=== PATIENT | female | born 1945 | race Caucasian/White ===

== ENCOUNTER 2016-06-05 14:08 | Emergency (ER) | payer MEDICARE ==
[2016-06-05 14:54] VITALS: BP 122/64
--- NOTE | 2016-06-05 15:15 | UC ---
Eye Complaint HPI - HPI Summary HPI Summary: complaint of left eye itchiness , redness and discharge that started today denies vision changes denies eye pain, headache doesn't wear contacts recent contact with several students with pink eye - History of Current Complaint Chief Complaint: UCEye Stated Complaint: LEFT EYE COMPLAINT Time Seen by Provider: 06/05/16 15:09 Hx Obtained From: Patient - Allergies/Home Medications Allergies/Adverse Reactions: Allergies Allergy/AdvReac Type Severity Reaction Status Date / Time Hydrocodone AdvReac Headache, Verified 06/05/16 14:46 nausea Meperidine [From Demerol HCl] AdvReac numbness/ti Verified 06/05/16 14:46 ngling Morphine AdvReac Nausea, Verified 06/05/16 14:46 headache Oxycodone AdvReac Headache, Verified 06/05/16 14:46 nausea PMH/Surg Hx/FS Hx/Imm Hx Previously Healthy: Yes Endocrine History Of: Reports: Thyroid Disease Denies: Diabetes Cardiovascular History Of: Reports: Hypertension Denies: Pacemaker/ICD Respiratory History Of: Denies: Asthma GI/ History Of: Denies: Renal Disease - Surgical History Surgical History: Yes Surgery Procedure, Year, and Place: HYSTERECTOMY, TONSILS, LASIK. Right shoulder surgery 2012. gallbladder december 2012 - Family History Known Family History: Negative: Cardiac Disease, Hypertension, Diabetes - Social History Occupation: Employed Part-time Lives: With Family Alcohol Use: Rare Substance Use Type: None Smoking Status (MU): Never Smoked Tobacco Type: Cigarettes Amount Used/How Often: smoked 1965 - 1969's, 2 cig per day - Immunization History Most Recent Influenza Vaccination: 2016 Most Recent Tetanus Shot: Unk Most Recent Pneumonia Vaccination: UTD Review of Systems Constitutional: Negative Skin: Negative Eyes: Drainage, Eye Redness ENT: Negative Respiratory: Negative Cardiovascular: Negative Gastrointestinal: Negative Genitourinary: Negative Motor: Negative Neurovascular: Negative Musculoskeletal: Negative Neurological: Negative Psychological: Negative All Other Systems Reviewed And Are Negative: Yes Physical Exam Triage Information Reviewed: Yes Appearance: No Pain Distress, Well-Nourished Vital Signs: Initial Vital Signs Temp 97.9 F 06/05/16 14:48 Pulse 75 06/05/16 14:48 Resp 18 06/05/16 14:48 BP 122/64 06/05/16 14:48 Pulse Ox 98 03/09/17 14:48 Vital Signs Reviewed: Yes Eyes: Positive: Conjunctiva Inflamed - left, Discharge - purulent discharge ENT: Positive: TMs normal. Negative: Pharyngeal erythema, Nasal congestion Neck: Positive: No Lymphadenopathy Respiratory: Positive: Lungs clear, Normal breath sounds, No respiratory distress Cardiovascular: Positive: RRR, No Murmur Abdomen Description: Positive: Nontender, Soft Bowel Sounds: Positive: Present Musculoskeletal: Positive: No Edema Neurological Exam: Normal Psychological Exam: Normal Skin Exam: Normal Eye Complaint Course/Dx - Differential Dx/Diagnosis Differential Diagnosis/HQI/PQRI: Conjunctivitis Provider Diagnoses: conjuncitivitis left Discharge - Discharge Plan Condition: Stable Disposition: HOME Prescriptions: Tobramycin (Ophth) [Tobrex] 0.3 % OP Q4HR #1 guillermina Patient Education Materials: Conjunctivitis (ED) Referrals: Rae Blackman MD [Primary Care Provider] - Additional Instructions: CONJUNCTIVITIS What is Conjunctivitis? Conjunctivitis is redness and swelling of the conjunctiva, the thin transparent layer that lines the inner eyelid and covers the white part of the eye. The three main types of conjunctivitis are infectious, allergic, and chemical. The infectious type, commonly called "pink eye," is caused by a contagious virus or by bacteria. Your body's allergies to pollen, cosmetics, animals or fabrics often bring on allergic conjunctivitis. Irritants like air pollution, noxious fumes and chlorine in swimming pools may produce the chemical form. Symptoms Might Include: More tearing Eye pain Redness in the eyes Gritty feeling in the eyes Itching of the eye Blurred vision Sensitivity to light Crusts that form on the eyelid overnight Treatment Recommendations: Use eye drops or ointment as directed. Do not rub or touch your eyes. Wash your hands frequently. Use cool compresses to relieve pain and itching. Prevention: Do not share eye make-up. Replace eye make-up frequently. Do not share towels, washcloths, etc. Do not share eye drops. Disinfect and handle contact lenses properly. Call Your Doctor or Return Here IF: Your symptoms worsen or do not improve in 3 to 4 days. You have problems with, or loss of, your vision. You have a significant increase in pain. You have any new symptoms that worry you.
== END 2016-06-05 15:20 | disposition home or self-care (01) ==
LOC: UCCORT 14:08
DX: H10.32 Unspecified acute conjunctivitis, left eye (principal); Z88.5 Allergy status to narcotic agent; Z90.49 Acquired absence of other specified parts of digestive tract; Z87.891 Personal history of nicotine dependence
CPT/HCPCS: 99212; G0463

== ENCOUNTER 2016-12-17 13:45 | Emergency (ER) | payer MEDICARE ==
[2016-12-17 14:28] VITALS: BP 129/67
--- NOTE | 2016-12-17 15:04 | UC ---
Respiratory Complaint HPI - HPI Summary HPI Summary: 71 YO FEMALE WITH SINUS PRESSURE PAIN/POST NASAL DRIP AND COUGH ONSET 4-5 WEEKS AGO TOOK AMOXIL EARLY ON NO IMPROVEMENT NO F/C NO N/V/D - History of Current Complaint Chief Complaint: UCRespiratory Stated Complaint: cough,headache Time Seen by Provider: 12/17/16 14:58 Hx Obtained From: Patient Onset/Duration: Gradual Onset, Lasting Weeks Timing: Constant Severity Initially: Moderate Severity Currently: Moderate Pain Intensity: 3 Pain Scale Used: 0-10 Numeric Character: Cough: Nonproductive Aggravating Factors: Nothing Alleviating Factors: Nothing Associated Signs And Symptoms: Positive: Nasal Congestion, Sinus Discomfort - Allergies/Home Medications Allergies/Adverse Reactions: Allergies Allergy/AdvReac Type Severity Reaction Status Date / Time Hydrocodone AdvReac Headache, Verified 12/17/16 14:28 nausea Meperidine [From Demerol HCl] AdvReac numbness/ti Verified 12/17/16 14:28 ngling Morphine AdvReac Nausea, Verified 12/17/16 14:28 headache Oxycodone AdvReac Headache, Verified 12/17/16 14:28 nausea PMH/Surg Hx/FS Hx/Imm Hx Previously Healthy: Yes Endocrine History: Dyslipidemia Cardiovascular History: Hypertension - Surgical History Surgical History: Yes Surgery Procedure, Year, and Place: HYSTERECTOMY, TONSILS, LASIK. Right shoulder surgery 2012. gallbladder december 2012 - Family History Known Family History: Negative: Cardiac Disease, Hypertension, Diabetes - Social History Alcohol Use: Rare Substance Use Type: None Smoking Status (MU): Never Smoked Tobacco Type: Cigarettes Amount Used/How Often: smoked 1966 - 1969's, 2 cig per day - Immunization History Most Recent Influenza Vaccination: 2016 Most Recent Tetanus Shot: Unk Most Recent Pneumonia Vaccination: UTD Review of Systems Constitutional: Negative Skin: Negative Eyes: Negative ENT: Nasal Discharge, Sinus Congestion, Sinus Pain/Tenderness Respiratory: Cough Cardiovascular: Negative Gastrointestinal: Negative Genitourinary: Negative Motor: Negative Neurovascular: Negative Musculoskeletal: Negative Neurological: Negative Psychological: Negative Is Patient Immunocompromised?: No All Other Systems Reviewed And Are Negative: Yes Physical Exam Triage Information Reviewed: Yes Appearance: Well-Appearing, No Pain Distress, Well-Nourished Vital Signs: Initial Vital Signs Temp 99.2 F 12/17/16 14:23 Pulse 82 12/17/16 14:23 Resp 16 12/17/16 14:23 BP 129/67 12/17/16 14:23 Pulse Ox 100 12/17/16 14:23 Vital Signs Reviewed: No Eyes: Positive: Conjunctiva Clear ENT: Positive: Hearing grossly normal, Nasal congestion, Nasal drainage, Other: - BILAT MAX SINUS TENDERNESS. Negative: Tonsillar exudate, Trismus, Muffled/ hoarse voice Neck: Positive: Supple, Nontender, No Lymphadenopathy Respiratory: Positive: Lungs clear, Normal breath sounds, No respiratory distress, No accessory muscle use Cardiovascular: Positive: RRR, No Murmur Musculoskeletal: Positive: ROM Intact, No Edema Neurological: Positive: Alert Psychological Exam: Normal Skin Exam: Normal UC Diagnostic Evaluation - Laboratory O2 Sat by Pulse Oximetry: 100 - NORMAL/NOT HYPOXIC Respiratory Course/Dx - Differential Dx/Diagnosis Provider Diagnoses: SINUSITIS Discharge - Discharge Plan Condition: Stable Disposition: HOME Prescriptions: Cefuroxime Axetil [Ceftin 250 MG] 250 mg PO BID #20 tab Patient Education Materials: Sinusitis (ED) Referrals: Rae Blackman MD [Primary Care Provider] - 5 Days (if not better) Additional Instructions: continue saline nasal spray recheck for new or worsening symptoms recheck early next week if not better
== END 2016-12-17 15:11 | disposition home or self-care (01) ==
LOC: UCCORT 13:45
DX: J32.9 Chronic sinusitis, unspecified (principal); E78.5 Hyperlipidemia, unspecified; I10 Essential (primary) hypertension; Z90.710 Acquired absence of both cervix and uterus; Z90.49 Acquired absence of other specified parts of digestive tract; Z88.5 Allergy status to narcotic agent; Z77.22 Contact with and (suspected) exposure to environmental tobacco smoke (acute) (chronic)
CPT/HCPCS: 99212; G0463

== ENCOUNTER 2018-02-23 14:43 | Emergency (ER) | payer MEDICARE ==
[2018-02-23 15:10] VITALS: BP 129/60
--- NOTE | 2018-02-23 15:42 | UC ---
Throat Pain/Nasal Refugio HPI - HPI Summary HPI Summary: Patient presents with 7 days of progressive cough productive of yellow sputum, wheeze, fatigue. Patient states a little bit of sinus congestion. Patient denies shortness of breath. No nausea vomiting. No fever, chills, rash. Patient has used [id number] Mucinex with little improvement. Patient's was sick but he got better. Patient at the pneumonia shot as well as a flu shot. Patient does take care of her grandchildren who are school age. Patient also substitutes in the school. Patient reports multiple sick contacts. No nausea/vomiting/diarrhea. No change in appetite. Patient does not have a diagnosis of lung disease. Patient's medications reviewed this visit. - History of Current Complaint Chief Complaint: UCRespiratory Stated Complaint: COUGH, CONGESTION Time Seen by Provider: 02/23/18 15:30 Hx Obtained From: Patient ?: No Onset/Duration: Gradual Onset Severity: Mild Pain Intensity: 0 - Allergies/Home Medications Allergies/Adverse Reactions: Allergies Allergy/AdvReac Type Severity Reaction Status Date / Time hydrocodone AdvReac Nausea and Verified 02/23/18 15:18 nausea meperidine [From Demerol] AdvReac Numbness Verified 02/23/18 15:18 And Tingling morphine AdvReac Headache Verified 02/23/18 15:18 and nausea oxycodone AdvReac Headache Verified 02/23/18 15:18 and nausa Home Medications: Home Medications Enalapril TAB* [Vasotec TAB*] 20 mg PO DAILY 02/23/18 [History Confirmed ] Hydrochlorothiazide TAB* [Hydrodiuril TAB*] 25 mg PO DAILY 02/23/18 [History Confirmed 02/23/18] Magnesium 90 mg PO DAILY 02/23/18 [History Confirmed 02/23/18] PMH/Surg Hx/FS Hx/Imm Hx Previously Healthy: Yes - Surgical History Surgical History: Yes Surgery Procedure, Year, and Place: HYSTERECTOMY, TONSILS, LASIK. Right shoulder surgery 2012. gallbladder december 2012 - Family History Known Family History: Positive: Non-Contributory Negative: Cardiac Disease, Hypertension, Diabetes - Social History Occupation: Employed Part-time Lives: With Family Alcohol Use: Rare Substance Use Type: None Smoking Status (MU): Never Smoked Tobacco Type: Cigarettes Amount Used/How Often: smoked 1965 - 1970's, 2 cig per day - Immunization History Most Recent Influenza Vaccination: 2016 Most Recent Tetanus Shot: Unk Most Recent Pneumonia Vaccination: UTD Review of Systems All Other Systems Reviewed And Are Negative: Yes Constitutional: Positive: Fatigue ENT: Positive: Sinus Congestion Respiratory: Positive: Cough. Negative: Shortness Of Breath Cardiovascular: Positive: Negative Physical Exam - Summary Physical Exam Summary: Vital Signs Reviewed: Yes A+Ox3, no distress Eyes: Conjunctiva Clear, EL. EOM intact and full ENT: Hearing grossly normal TM x 2 clear, turbinates inflammed, PND, mmoist, uvula midline, no exudate, no erythema Neck: Positive: Supple Respiratory: Positive: No respiratory distress, No accessory muscle use + scattered wheeze, rhonci left base, speaking full, easy sentences Cardiovascular: RRR nl s1, s2 no m/r CBT <2 sec abd soft + BS nt/nd no guarding, no distension Musculoskeletal Exam: MITCHELL x 4 without difficulty Strength Intact, ROM Intact Neurological: Positive: Alert, + sensation throughout Psychological: Positive: Normal Response To Family Skin: Positive: no rash, no ecchymosis Triage Information Reviewed: Yes Vital Signs: Initial Vital Signs Temp 98.3 F 02/23/18 15:05 Pulse 71 02/23/18 15:05 Resp 17 02/23/18 15:05 BP 129/60 02/23/18 15:05 Pulse Ox 99 02/23/18 15:05 Diagnostics - Radiology No standard instances Radiology Interpretation Completed By: Radiologist - Patient Name: RUDY LITTLE Medical Record#: [id number] Ordering Physician: Antonette Jaramillo MD Acct.#: [id number] : 1945 Age: 72 Sex: F Location: [facility] Exam Date: 02/23/18 1551 ADM Status: REG ER Order Information: CHEST PA & LAT 2 VWS Accession Number: [id number] CPT: 06624 Indication: Cough. 2 views of the chest including dual energy PA views demonstrate no mediastinal shift. Heart is of normal size and configuration. Lung romero appear clear. No evidence of alveolar consolidation is noted. IMPRESSION: No active cardiopulmonary disease is noted. < Electronically signed by Paula Avitia MD in [place]> 02/23/181627 Dictated By: Paula Avitia MD Dictated Date/Time: 02/23/181627 Transcribed Date/Time: 02/23/181622 Copy to: CC:Rae Blackman MD; Antonette Jaramillo MD Imaging - [facility] Imaging - [place] [facility] [id number] [place] [id number] [place] [id number] ph [phone]) ph ([phone]) ph ([phone]) This report is only to be considered final once signed by the Provider(s ) as displayed in the "<Electronically Signed by >" field (s). Absence of a signature indicates the report is in a draft status and still needs to be finalized. In the event this document was created by someone other than the signing Provider, the individual initiating the document will be listed in the "Entered by:" or "Dictated by:" romero. 1 of 1 Re-Evaluation - Re-Evaluation First Eval Re-Evaluation Time: 16:30 Change: Improved - Patient states her breathing feels much better after neb. Patient's breath sounds are clear without any wheezing or rhonchi. Chest x-ray reviewed and negative. Reviewed with patient. We'll prescribe antibiotics for bronchitis. Discussed with patient humidified air. Motrin/Tylenol. Secretion precaution. Patient has nebulizer at home for her grandchildren. Will give Rx for albuterol as well as MDI. Discussed with patient to change her toothbrush in pillowcase following treatment. Patient comfortable in agreement with plan. PT states gets yeast infection with abx - will give diflucan prn Throat Pain/Nasal Course/Dx - Course Course Of Treatment: Patient presents to urgent care reporting 7 days of cough with production of yellow sputum. Patient denies nausea vomiting. Patient has developed wheezing over the last 48 hours. No shortness of breath. Patient reports multiple sick contacts. On exam vital signs are stable. Patient with coarse expiratory respirations on her left base. We'll give a DuoNeb and check a chest x-ray. Patient comfortable in agreement with plan. - Differential Dx/Diagnosis Provider Diagnosis: Acute bronchitis Discharge - Sign-Out/Discharge Documenting (check all that apply): Patient Departure All imaging exams completed and their final reports reviewed: Yes - Discharge Plan Condition: Stable Disposition: HOME Prescriptions: Albuterol 2.5MG/3ML (0.083%)* [Ventolin 2.5 MG/3 ML NEB.PAUL*] 2.5 mg INH Q4H # 30 neb.paul Albuterol HFA INHALER* [Ventolin HFA Inhaler*] 1 puff INH Q4H PRN #1 mdi PRN Reason: wheeze DOXYcycline CAP(*) [DOXYcycline 100MG CAP(*)] 100 mg PO BID #20 cap Fluconazole [Diflucan 150 MG (NF)] 150 mg PO ONCE PRN #1 tab PRN Reason: vaginal yeast infection Mometasone Furoate [Nasonex] 17 gm NS DAILY #1 spray.pump Patient Education Materials: Acute Bronchitis (ED) Referrals: Rae Blackman MD [Primary Care Provider] - Additional Instructions: -Take antibiotics exactly as prescribed until gone -Use your albuterol puffer or nebulizer- every 4 hours for the next 2 days - then as needed for cough or wheeze -Stay well hydrated - avoid excess caffeine and all alcohol - Eat regular, healthy meals - Humidify the air in the room where you sleep - boil water, run a hot steam shower, vaporizer, cups of water by heat register - okay to take over the counter decongestant and cough medication - take antibiotics as prescribed until gone - Take nasal spray as instructed -- These infections are spread by secretions - do NOT share eating or drinking utensils - clean items you share with other people such as cell phones, computer mouse, TV remote, computer tablets,etc.. Once you have been antibiotics for 2 days, change your toothbrush and your pillowcase. -Contact your doctor to arrange a follow-up appointment this week. Call your doctor, return here or go to the emergency department with any questions or concerns - Billing Disposition and Condition Condition: STABLE Disposition: Home
[2018-02-23] MEDS ORDERED: Albuterol/Ipratropium NEB.SOL* Albuterol 2.5 MG/Ipratropium 0.5 MG 3 ML INH ONE (15:50)
== END 2018-02-23 16:47 | disposition home or self-care (01) ==
LOC: UCCORT 14:43
DX: J20.9 Acute bronchitis, unspecified (principal); Z88.5 Allergy status to narcotic agent; Z87.891 Personal history of nicotine dependence
CPT/HCPCS: 71046; 99212; A9270-GY; G0463

== ENCOUNTER 2018-04-26 14:12 | Emergency (ER) | payer MEDICARE ==
[2018-04-26 14:26] VITALS: BP 130/75
--- NOTE | 2018-04-26 14:37 | UC ---
Throat Pain/Nasal Refugio HPI - HPI Summary HPI Summary: 72-year-old female comes to clinic today with a chief complaint of upper respiratory tract infection symptoms for 10 days. Patient started with runny nose sore throat and postnasal drip 10 days ago. Patient has green rhinorrhea in the morning. With postnasal drip she feel some congestion in her chest but that clears after coughing. She's not heard any wheezing she does not have a history of asthma or COPD. She is not short of breath. - History of Current Complaint Chief Complaint: UCGeneralIllness Stated Complaint: SINUS CONGESTION Time Seen by Provider: 04/26/18 14:24 Pain Intensity: 0 - Allergies/Home Medications Allergies/Adverse Reactions: Allergies Allergy/AdvReac Type Severity Reaction Status Date / Time hydrocodone AdvReac Nausea and Verified 04/26/18 14:22 nausea meperidine [From Demerol] AdvReac Numbness Verified 04/26/18 14:22 And Tingling morphine AdvReac Headache Verified 04/26/18 14:22 and nausea oxycodone AdvReac Headache Verified 04/26/18 14:22 and nausa Home Medications: Home Medications Calcium Carbonate [Calcium] 500 mg PO DAILY 04/26/18 [History Confirmed 04/26/18 ] Ferrous Sulfate TAB* 325 mg PO DAILY 04/26/18 [History Confirmed 04/26/18] Vitamin THERAPEUTIC TAB* [Theragran TAB*] 1 tab PO DAILY 04/26/18 [History Confirmed 04/26/18] PMH/Surg Hx/FS Hx/Imm Hx Previously Healthy: Yes Endocrine History: Hypothyroidism Cardiovascular History: Hypertension GI/ History: Gastroesophageal Reflux - Surgical History Surgical History: Yes Surgery Procedure, Year, and Place: HYSTERECTOMY, TONSILS, LASIK. Right shoulder surgery 2012. gallbladder december 2012 - Family History Known Family History: Positive: Non-Contributory Negative: Cardiac Disease, Hypertension, Diabetes - Social History Alcohol Use: Rare Substance Use Type: None Smoking Status (MU): Never Smoked Tobacco Type: Cigarettes Amount Used/How Often: smoked 1965 - 1969's, 2 cig per day - Immunization History Most Recent Influenza Vaccination: 2016 Most Recent Tetanus Shot: Unk Most Recent Pneumonia Vaccination: UTD Review of Systems All Other Systems Reviewed And Are Negative: Yes Constitutional: Positive: Negative Skin: Positive: Negative Eyes: Positive: Negative ENT: Positive: Sore Throat, Nasal Discharge, Sinus Congestion Respiratory: Positive: Cough Cardiovascular: Positive: Negative Gastrointestinal: Positive: Negative Motor: Positive: Negative Neurovascular: Positive: Negative Musculoskeletal: Positive: Negative Neurological: Positive: Negative Psychological: Positive: Negative Is Patient Immunocompromised?: No Physical Exam Triage Information Reviewed: Yes Appearance: No Pain Distress, Well-Nourished, Ill-Appearing - MILD Vital Signs: Initial Vital Signs Temp 97.7 F 04/26/18 14:21 Pulse 92 04/26/18 14:21 Resp 15 04/26/18 14:21 BP 130/75 04/26/18 14:21 Pulse Ox 98 04/26/18 14:21 Vital Signs Reviewed: Yes Eye Exam: Normal Eyes: Positive: Conjunctiva Clear ENT: Positive: Pharyngeal erythema, Nasal congestion, Nasal drainage, TMs normal Neck exam: Normal Neck: Positive: Supple Respiratory: Positive: Lungs clear, Normal breath sounds, No respiratory distress. Negative: Wheezing Cardiovascular: Positive: RRR Musculoskeletal Exam: Normal Musculoskeletal: Positive: Strength Intact, ROM Intact Neurological Exam: Normal Neurological: Positive: Alert, Muscle Tone Normal Psychological Exam: Normal Psychological: Positive: Age Appropriate Behavior Skin Exam: Normal Throat Pain/Nasal Course/Dx - Differential Dx/Diagnosis Provider Diagnosis: Sinusitis Discharge - Sign-Out/Discharge Documenting (check all that apply): Patient Departure All imaging exams completed and their final reports reviewed: No Studies - Discharge Plan Condition: Stable Disposition: HOME Prescriptions: DOXYcycline CAP(*) [DOXYcycline 100MG CAP(*)] 100 mg PO BID #20 cap Patient Education Materials: Sinusitis (ED) Referrals: Rae Blackman MD [Primary Care Provider] - Additional Instructions: FOLLOW UP WITH YOUR DOCTOR IF NOT COMPLETELY IMPROVED. GET RECHECKED FOR ANY WORSENING OF YOUR CONDITION OR QUESTIONS OR CONCERNS. - Billing Disposition and Condition Condition: STABLE Disposition: Home
== END 2018-04-26 14:50 | disposition home or self-care (01) ==
LOC: UCCORT 14:12
DX: J32.9 Chronic sinusitis, unspecified (principal); I10 Essential (primary) hypertension; Z88.5 Allergy status to narcotic agent
CPT/HCPCS: 99212; G0463